=== PATIENT | male | born 1990 | race Caucasian/White ===

== ENCOUNTER 2016-09-19 10:46 | Emergency (ER) | payer OTHER, BC ==
[2016-09-19 10:56] VITALS: BP 139/85
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
[2016-09-19 11:50] LABS: CHLORIDE,CL 105 mmol/L (98-107); SODIUM,NA 141 mmol/L (136-145)
== END 2016-09-19 12:23 | disposition home or self-care (01) ==
LOC: VM.ED 10:57
DX: S13.9XXA Sprain of joints and ligaments of unspecified parts of neck, initial encounter (principal); S10.93XA Contusion of unspecified part of neck, initial encounter; Z79.899 Other long term (current) drug therapy; V89.2XXA Person injured in unspecified motor-vehicle accident, traffic, initial encounter
CPT/HCPCS: 36415; 70450; 72125; 80048; 80305; 81001; 85025; 99285; G0480